=== PATIENT | male | born 1980 | race Caucasian/White ===

== ENCOUNTER → 2020-05-22 | Outpatient (CLI) | payer OTHER ==
[~2020-05-22] VITALS: Ht 185.4 cm; Wt 108.9 kg
== END ==
LOC: OPSV 10:54
DX: M45.9 Ankylosing spondylitis of unspecified sites in spine (principal); Z88.2 Allergy status to sulfonamides
CPT/HCPCS: 96365; 96366; J7050; Q5103

== ENCOUNTER → 2020-07-31 | Outpatient (CLI) | payer OTHER ==
[~2020-07-31] VITALS: Ht 185.4 cm; Wt 108.9 kg
== END ==
LOC: OPSV 08:43
DX: M45.9 Ankylosing spondylitis of unspecified sites in spine (principal)
CPT/HCPCS: 96365; 96366; 96375; J1720; J7050; Q5103

== ENCOUNTER → 2021-03-04 | Outpatient (CLI) | payer OTHER | LOC: EXRD 11:35 | DX: M45.8 Ankylosing spondylitis sacral and sacrococcygeal region (principal); M47.814 Spondylosis without myelopathy or radiculopathy, thoracic region | CPT/HCPCS: 72070; 72202 ==

== ENCOUNTER → 2021-04-07 | Outpatient (CLI) | payer OTHER | LOC: KOH-I 09:51 | DX: R74.01 Elevation of levels of liver transaminase levels (principal); R16.0 Hepatomegaly, not elsewhere classified; K76.0 Fatty (change of) liver, not elsewhere classified | CPT/HCPCS: 76705 ==